=== PATIENT | female | born 1960 | race Caucasian/White ===

== ENCOUNTER 2016-09-14 14:48 | Emergency (ER) | payer MEDICARE ==
[2012-03-18 18:14] VITALS: BMI 48.7
[2016-09-14 15:58] LABS: BASOPHILS 0.9 % (0.0-2.0); EOSINOPHILS 4.3 % (0-7); HEMATOCRIT 43.3 % (36.0-48.0); HEMOGLOBIN 14.3 g/dL (12-16); IMMATURE GRANULOCYTES 0.1 % (0-5); MCH 31.2 pg (26.0-34.0); MCV 94.5 fL (80.0-100.0); MEAN PLATELET VOLUME 10.3 fL (7.4-10.4); MONOCYTES 8.7 % (2-11); PLATELET COUNT 198 10x3/uL (130-400); RBC 4.58 10x6/uL (4.00-5.40); RDW 12.9 % (11.5-14.5); WBC 6.9 10x3/uL (4.8-10.8)
[2016-09-14 16:07] LABS: APTT 25.4 SECONDS (22.8-39.4); INR 1.13 (0.85-1.17); PROTIME 14.4 SECONDS (11.6-15.0)
[2016-09-14 16:15] LABS: ALBUMIN 3.8 g/dL (3.4-5.0); ANION GAP 11.4 mmol/L (8-16); BILIRUBIN - TOTAL 0.42 mg/dL (0.2-1.3); CALCIUM 9.4 mg/dL (8.5-10.1); CARBON DIOXIDE 28.4 mmol/L (21.0-32.0); POTASSIUM - SERUM 3.8 mmol/L (3.5-5.1); PROTEIN - SERUM 7.2 g/dL (6.4-8.2)
== END 2016-09-14 18:03 | disposition left against medical advice (07) ==
LOC: D.ER 14:48
PROVIDERS: Emergency Medicine
DX: K92.1 Melena (principal)

== ENCOUNTER 2016-10-21 13:21 | Emergency (ER) | payer MEDICARE ==
[2012-03-18 18:14] VITALS: BMI 48.7
== END 2016-10-21 16:14 | disposition left against medical advice (07) ==
LOC: D.ER 13:21
DX: M54.5 Low back pain (principal)

== ENCOUNTER 2016-10-25 17:39 | Emergency (ER) | payer MEDICARE ==
[2012-03-18 18:14] VITALS: BMI 48.7
== END 2016-10-25 18:43 | disposition home or self-care (01) ==
LOC: D.ER 17:39
DX: S33.5XXA Sprain of ligaments of lumbar spine, initial encounter (principal); W19.XXXA Unspecified fall, initial encounter; Y93.89 Activity, other specified; Y92.017 Garden or yard in single-family (private) house as the place of occurrence of the external cause; S83.92XA Sprain of unspecified site of left knee, initial encounter; F17.200 Nicotine dependence, unspecified, uncomplicated; F32.9 Major depressive disorder, single episode, unspecified; K21.9 Gastro-esophageal reflux disease without esophagitis; B20 Human immunodeficiency virus [HIV] disease

== ENCOUNTER 2017-01-31 19:56 | Observation (INO) | payer MEDICARE ==
[~2017-01-31] VITALS: Ht 170.2 cm; Wt 134.3 kg
[2017-01-31 20:32] LABS: BASOPHILS 0.1 % (0-2); EOSINOPHILS 1.1 % (0-7); HEMATOCRIT 40.7 % (36.0-48.0); HEMOGLOBIN 13.8 g/dL (12-16); IMMATURE GRANULOCYTES 0.1 % (0-5); LYMPHOCYTES 22.9 % (15-50); MCH 31.5 pg (26.0-34.0); MCHC 33.9 g/dL (31.0-37.0); MCV 92.9 fL (80.0-100.0); MEAN PLATELET VOLUME 10.4 fL (7.4-10.4); MONOCYTES 4.9 % (2-11); NEUTROPHILS 70.9 % (40-80); PLATELET COUNT 185 10x3/uL (130-400); RBC 4.38 10x6/uL (4.00-5.40); RDW 12.8 % (11.5-14.5); WBC 9.3 10x3/uL (4.8-10.8)
[2017-01-31 20:45] LABS: ALBUMIN 3.2 g/dL (3.4-5.0); ALKALINE PHOSPHATASE 126 U/L (46-116); ALT (SGPT) 27 U/L (10-68); BILIRUBIN - TOTAL 0.17 mg/dL (0.2-1.3); CALC OSMOLALITY 288 mosm/kg (275-300); CALCIUM 8.7 mg/dL (8.5-10.1); CHLORIDE - SERUM 107 mmol/L (98-107); CREATININE - SERUM 1.3 mg/dL (0.6-1.3); POTASSIUM - SERUM 3.4 mmol/L (3.5-5.1); PROTEIN - SERUM 6.9 g/dL (6.4-8.2); SODIUM 142 mmol/L (136-145); UREA NITROGEN 17 mg/dL (7-18); eGFR NON AFRICAN AMERICAN 45 mL/min (90-120)
[2017-01-31 20:46] LABS: GLUCOSE 178 mg/dL (74-106)
[2017-01-31 20:54] LABS: CHOL - HDL RATIO 2.8 ratio (2.3-4.1); CHOLESTEROL, TOTAL 128 mg/dL (0-200); CKMB 0.4 U/L (0.0-3.6); CREATINE KINASE 77 UL (21-215); HDL CHOLESTEROL 45 mg/dL (32-96); LDL CHOLESTEROL 53 mg/dL (0-100); LDL-HDL RATIO 1.2 ratio (1.5-3.5); TRIGLYCERIDE 152 mg/dL (30-200)
[2017-01-31 20:55] LABS: TROPONIN-I < 0.017 ng/mL (0.000-0.060)
--- NOTE | 2017-01-31 22:20 | NUR ---
ADMIT TO ROOM 2122 FROM ER. ALERT/ORIENTED. ADMISSION HISTORY AND ASSESSMENT INITIATED. HOME MEDS REVIEWED. PT STATES SHE TAKES ALL HER MEDS ONLY ONCE PER DAY
[2017-02-01 01:37] LABS: CKMB 0.5 U/L (0.0-3.6); CREATINE KINASE 61 UL (21-215); TROPONIN-I < 0.017 ng/mL (0.000-0.060)
[2017-02-01 02:49] VITALS: BP 114/68; BMI 43.9
[2017-02-01 04:00] VITALS: BP 98/48
--- NOTE | 2017-02-01 04:29 | NUR ---
C/O CHEST PAIN. MEDICATED WITH MORPHINE 5MG SIVP AND ZOFRAN 4MG SIVP. PT SAYING SHE CANNOT GET COMFORTABLE NO MATTER WHAT POSITION SHE IS IN. CPOC.
[2017-02-01] MEDS ORDERED: CARAFATE1 G PO (05:10)
[2017-02-01] MEDS ORDERED: ATRIPLA TABLET1 TAB PO (05:11)
[2017-02-01] MEDS ORDERED: PROTONIX40 MG PO (05:12)
[2017-02-01] MEDS ORDERED: PRAVACHOL40 MG PO (05:12)
[2017-02-01] MEDS ORDERED: PROZAC10 MG PO (05:13)
[2017-02-01] MEDS ORDERED: GLUCOPHAGE500 MG PO (05:14)
[2017-02-01 05:36] LABS: CKMB 0.6 U/L (0.0-3.6); CREATINE KINASE 64 UL (21-215); TROPONIN-I < 0.017 ng/mL (0.000-0.060)
--- NOTE | 2017-02-01 06:06 | NUR ---
PT HAS BEEN MEDICATED TWICE FOR CHEST PAIN DURING THE NIGHT. SHE HAS BEEN UP TO THE BATHROOM ONCE WITH STAFF FOR STAND BY ASSISTANCE. PLAN OF CARE IN PLACE. PIV TO RIGHT A/C IS SALINE LOCKED. CALL LIGHT IN REACH.
--- NOTE | 2017-02-01 07:24 | NUR ---
ASSESSMENT COMPLETED. TELEMERTY SHOWS SR AT 73. 02 AT 2 L/M PER NC. RIGHT AC SL. NPO FOR NOW. DENIES ANY NEEDS. CALL LIGHT IN REACH WITH SR UP. WILL MONITOR
--- NOTE | 2017-02-01 07:32 | NUR ---
ASSESSMENT COMPLETED. UP IN BEDSIDE CHAIR. DENIES ANY NEEDS OR PAIN. CALL LIGHT IN REACH. WILL MONITOR
[2017-02-01 08:00] VITALS: BP 105/61
--- NOTE | 2017-02-01 10:25 | NUR ---
PT RETURNED VIA W/C IN STABLE CONDITION FROM HAVING PE CHEST DONE
[2017-02-01 12:00] VITALS: BP 96/60
[2017-02-01 12:18] LABS: CKMB 0.6 U/L (0.0-3.6); CREATINE KINASE 61 UL (21-215)
[2017-02-01 12:19] LABS: TROPONIN-I < 0.017 ng/mL (0.000-0.060)
[2017-02-01 16:00] VITALS: BP 104/53
[2017-02-01 20:00] VITALS: BP 99/62
--- NOTE | 2017-02-01 20:37 | NUR ---
MEDICATED WITH MORPHINE AND ZOFRAN IV FOR CHEST/GENERALIZED PAIN AND DISCOMFORT 04/23. CALL LIGHT IN REACH.
[2017-02-02] VITALS: BP 89/56
--- NOTE | 2017-02-02 00:44 | NUR ---
RESTING IN BED WITH NO DISTRESS. RESPS EVEN/NONLABORED. BP ON THE LOW SIDE SINCE SHE RECIEVED PAIN MED EARLIER. WILL MONITOR. CPOC.
--- NOTE | 2017-02-02 03:24 | NUR ---
PT AWAKE WITH C/O HEADACHE. MEDICATED WITH TYLENOL 650MG BY MOUTH. MONITOR AND CPOC.
[2017-02-02 04:00] VITALS: BP 97/52
--- NOTE | 2017-02-02 06:23 | NUR ---
PT RESTING IN BED. NO FURTHER C/O HEADACHE. NO CHANGE FROM INITIAL SHIFT ASSESSMENT. MONITOR AND CPOC. CALLL LIGHT IN REACH.
--- NOTE | 2017-02-02 07:37 | NUR ---
ASSESSMENT DONE. DENIES NEEDS.
--- NOTE | 2017-02-02 07:54 | NUR ---
RESTS IN BED WITH EYES CLOSED. CALL LIGHT IN REACH. WILL CONT. PLAN OF CARE.
[2017-02-02 08:29] VITALS: BP 97/56
[2017-02-02 12:05] VITALS: BP 97/53
--- NOTE | 2017-02-02 12:16 | HP ---
PATIENT: MILLIE TREVINO MEDICAL RECORD: [id number] ACCOUNT: [id number] LOCATION:[address] : 60 ADMISSION DATE: 01/31/17 HISTORY AND PHYSICAL EXAMINATION DATE OF SERVICE: 02/01/2017 ADMITTING DIAGNOSES: 1. Chest pain of unknown etiology. 2. Past history of pulmonary embolus. 3. Hyperlipidemia. 4. Human immunodeficiency virus. 5. Amf-[id number]-[id number] diabetes. 6. Gastroesophageal reflux disease. 7. Chronic nonsteroidal use. HISTORY OF PRESENT ILLNESS: This is a woman who presents with chest discomfort. She has a past history of pulmonary embolus; it has been a number of years. She is not on anticoagulation at this time for the pulmonary embolus. She had a sharp stabbing pain. She said even also number of years ago. She remembers that it is the same type of pain she had with the pulmonary embolus. She as well was having shortness of breath. She has no cardiac history. She has risk factors such as noninsulin-dependent diabetes, smoking history and hyperlipidemia. She does not know her family history as she has been adopted. She does have chronic back pain for which she uses chronic nonsteroidals. She has not had GI bleeding history. Her HIV is basically in remission. She has had a T-cell count greater than 900 for a number of years. She has not had any ____. PHYSICAL EXAMINATION: GENERAL APPEARANCE: Well-nourished, well-developed, appears stated age. Level of distress, comfortable. PSYCHIATRIC: Mental status, alert, normal affect. Orientation, oriented to time, place and person. EYES: Lids and conjunctiva, noninjected. No discharge, no pallor. ENT: Lips, teeth, gums, normal dentition. Oropharynx, no cyanosis, no pallor. NECK: Carotid arteries, bilateral normal upstroke, no bruits, no thrills. JUGULAR VEINS: No jugular venous pressure or distention. CERVICAL LYMPH NODES: Nontender, nonenlarged. THYROID: Not enlarged. Nontender. No nodules. LUNGS: Respiratory effort, unlabored. CHEST: Normal curvature. No thoracic deformity. No chest wall tenderness. Percussion, resonant. Auscultation, clear. No wheezes, no rales, no rhonchi. CARDIOVASCULAR: Precordial exam, nondisplaced. No heaves or pericardial thrills. Rate and rhythm, regular. Heart sounds, normal S1, normal S2. No S3, no gallop, no rub. Systolic murmur, not heard. Diastolic murmur, not heard. EXTREMITIES: No cyanosis, no edema. Peripheral pulses, full and equal in all extremities, except as noted. No bruits appreciated. ABDOMEN: Soft, nondistended. Normal aorta. No bruit. Nontender. No masses. Liver, nontender, no hepatomegaly. Spleen, nontender, no splenomegaly. MUSCULOSKELETAL: No joint tenderness. No joint swelling. No erythema. NEUROLOGICAL: Normal gait, normal strength, normal tone. SKIN: Warm and dry. REVIEW OF SYSTEMS: The patient reports easy bruising but reports no swollen HISTORY AND PHYSICAL [id number] MILLIE TREVINO. The patient reports no fever, no night sweats, no significant weight gain, no significant weight loss. No significant exercise tolerance. The patient reports no dry eyes, no irritation, no vision change. Patient reports no difficulty hearing and no ear pain. Patient reports no frequent nose bleeds or nose and sinus problems. Patient reports on arm pain on exertion. No shortness of breath while lying down. No history of heart murmur. Patient reports no cough, no wheezing or coughing up blood. Patient reports no abdominal pain, no vomiting. Normal appetite. No diarrhea and not vomiting blood. No nausea and no constipation. Patient reports no incontinence. No difficulty urinating. No hematuria. No increased frequency. Patient reports no muscle aches. No weakness, no arthralgias, no back pain. No swelling of the extremities. Patient reports no abnormal mole, no jaundice, no rashes. Reports no loss of consciousness. No weakness and no numbness. No seizures, dizziness, or headaches. The patient reports no depression, no sleep disturbance, feeling safe in a relationship and no alcohol abuse. Patient reports on fatigue. Reports no runny nose or sinus pressure. No itching, no hives, and no frequent sneezing. OVERALL IMPRESSION: Troponin is normal. A 12-lead ECG is normal. She is relatively sedentary secondary to her low back disease; hence, recurrent pulmonary embolus, but clinically makes sense. We will get a CT angio. Further care depends upon the findings of the CT angio. 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 [address] [id number]
[2017-02-02 12:25] VITALS: Ht 170.2 cm; Wt 134.3 kg
--- NOTE | 2017-02-02 13:15 | NUR ---
DC GIVEN TO PT
--- NOTE | 2017-02-02 13:26 | NUR ---
DC HOME PER PERSONAL CAR
--- NOTE | 2017-02-03 18:08 | DS ---
PATIENT:MILLIE TREVINO :60 MEDICAL RECORD: [id number] DISCHARGE SUMMARY ADMISSION DATE: 01/31/17 DISCHARGE DATE: 02/02/17 DISCHARGE DIAGNOSES: 1. Chest pain of unknown etiology, GERD, past history of pulmonary embolus. 2. Human immunodeficiency virus. HOSPITAL COURSE: Ms. Trevino presents with chest pain. Cardiac enzymes were normal. She had no EKG changes. She had a CT angio. She has a distant history of pulmonary embolus. This was negative. Her chest pain resolved. Discharged home with p.r.n. followup. TRANSINT:[id number] Voice Confirmation ID: [id number] DOCUMENT ID: [id number] HAL DALY MD at 1808 CC: [id number] DICTATION DATE: 02/02/17 1217 SALES RECRUITER: 02/03/17 0744 DIS IN 02/02/[id number] [place] [address]
== END 2017-02-02 13:27 | disposition home or self-care (01) ==
LOC: D.ER 19:56 → OBSVTIME 21:14 → D.M2 21:14
PROVIDERS: Emergency Medicine; ADMIT Internal Medicine Interventional Cardiology
DX: R07.9 Chest pain, unspecified (principal); Z86.711 Personal history of pulmonary embolism; E78.5 Hyperlipidemia, unspecified; E11.9 Type 2 diabetes mellitus without complications; K21.9 Gastro-esophageal reflux disease without esophagitis; B20 Human immunodeficiency virus [HIV] disease

== ENCOUNTER 2017-03-10 17:04 | Emergency (ER) | payer MEDICARE ==
[2017-02-02 12:25] VITALS: BMI 46.4
[~2017-03-10 17:04] MED LIST: ATRIPLA TABLET1 TAB PO; CARAFATE1 G PO; GLUCOPHAGE500 MG PO; PRAVACHOL40 MG PO; PROTONIX40 MG PO; PROZAC10 MG PO
[2017-03-10 18:13] LABS: BASOPHILS 0.4 % (0-2); EOSINOPHILS 3.3 % (0-7); HEMOGLOBIN 13.9 g/dL (12-16); IMMATURE GRANULOCYTES 0.1 % (0-5); MCH 31.6 pg (26.0-34.0); MCHC 33.1 g/dL (31.0-37.0); MCV 95.5 fL (80.0-100.0); MEAN PLATELET VOLUME 10.1 fL (7.4-10.4); MONOCYTES 6.8 % (2-11); NEUTROPHILS 61.4 % (40-80); PLATELET COUNT 203 10x3/uL (130-400); RDW 13.2 % (11.5-14.5); WBC 7.7 10x3/uL (4.8-10.8)
[2017-03-10 18:29] LABS: INR 1.02 (0.85-1.17); PROTIME 13.2 SECONDS (11.6-15.0)
[2017-03-10 18:38] LABS: ALBUMIN 3.3 g/dL (3.4-5.0); ALKALINE PHOSPHATASE 130 U/L (46-116); ALT (SGPT) 30 U/L (10-68); BILIRUBIN - TOTAL 0.25 mg/dL (0.2-1.3); CALC OSMOLALITY 281 mosm/kg (275-300); CALCIUM 8.8 mg/dL (8.5-10.1); CARBON DIOXIDE 25.3 mmol/L (21.0-32.0); CHLORIDE - SERUM 104 mmol/L (98-107); CREATININE - SERUM 1.2 mg/dL (0.6-1.3); GLUCOSE 137 mg/dL (74-106); POTASSIUM - SERUM 3.7 mmol/L (3.5-5.1); PROTEIN - SERUM 7.1 g/dL (6.4-8.2); SODIUM 140 mmol/L (136-145); UREA NITROGEN 16 mg/dL (7-18); eGFR NON AFRICAN AMERICAN 49 mL/min (90-120)
[2017-03-10 19:14] LABS: MAGNESIUM - SERUM 1.8 mg/dL (1.8-2.4); PRO BNP 281 pg/mL (0-125)
[2017-03-10 19:15] LABS: TROPONIN-I < 0.017 ng/mL (0.000-0.060)
== END 2017-03-10 20:15 | disposition home or self-care (01) ==
LOC: D.ER 17:04
PROVIDERS: Nurse Practitioner Family
DX: R00.2 Palpitations (principal); F41.9 Anxiety disorder, unspecified; K21.9 Gastro-esophageal reflux disease without esophagitis; B20 Human immunodeficiency virus [HIV] disease

== ENCOUNTER 2017-04-24 17:04 | Emergency (ER) | payer MEDICARE ==
[2017-02-02 12:25] VITALS: BMI 46.4
== END 2017-04-24 19:00 | disposition left against medical advice (07) ==
LOC: D.ER 17:04
DX: R19.7 Diarrhea, unspecified (principal); K21.9 Gastro-esophageal reflux disease without esophagitis; B20 Human immunodeficiency virus [HIV] disease

== ENCOUNTER 2017-05-21 17:02 | Emergency (ER) | payer MEDICARE ==
[2017-02-02 12:25] VITALS: BMI 46.4
== END 2017-05-21 18:34 | disposition home or self-care (01) ==
LOC: D.ER 17:02
DX: S90.32XA Contusion of left foot, initial encounter (principal); W20.8XXA Other cause of strike by thrown, projected or falling object, initial encounter; Y93.E9 Activity, other interior property and clothing maintenance; Y92.018 Other place in single-family (private) house as the place of occurrence of the external cause

== ENCOUNTER 2017-05-29 19:58 | Emergency (ER) | payer MEDICARE ==
[2017-02-02 12:25] VITALS: BMI 46.4
[2017-05-29 21:02] LABS: BASOPHILS 0.5 % (0-2); EOSINOPHILS 4.4 % (0-7); HEMATOCRIT 41.1 % (36.0-48.0); HEMOGLOBIN 13.5 g/dL (12-16); IMMATURE GRANULOCYTES 0.2 % (0-5); LYMPHOCYTES 38.4 % (15-50); MCH 31.4 pg (26.0-34.0); MCHC 32.8 g/dL (31.0-37.0); MCV 95.6 fL (80.0-100.0); MEAN PLATELET VOLUME 10.3 fL (7.4-10.4); MONOCYTES 6.5 % (2-11); PLATELET COUNT 200 10x3/uL (130-400); RDW 13.2 % (11.5-14.5); WBC 6.4 10x3/uL (4.8-10.8)
[2017-05-29 21:13] LABS: ALKALINE PHOSPHATASE 136 U/L (46-116); ALT (SGPT) 25 U/L (10-68); BILIRUBIN - TOTAL 0.21 mg/dL (0.2-1.3); CALC OSMOLALITY 289 mosm/kg (275-300); CALCIUM 8.6 mg/dL (8.5-10.1); CARBON DIOXIDE 27.7 mmol/L (21.0-32.0); CHLORIDE - SERUM 110 mmol/L (98-107); CREATININE - SERUM 1.2 mg/dL (0.6-1.3); GLUCOSE 159 mg/dL (74-106); POTASSIUM - SERUM 3.6 mmol/L (3.5-5.1); PROTEIN - SERUM 6.7 g/dL (6.4-8.2); SODIUM 144 mmol/L (136-145); UREA NITROGEN 12 mg/dL (7-18); eGFR NON AFRICAN AMERICAN 49 mL/min (90-120)
[2017-05-29 21:14] LABS: ALBUMIN 3.2 g/dL (3.4-5.0)
[2017-05-29 21:17] LABS: CREATINE KINASE 84 UL (21-215)
[2017-05-29 21:19] LABS: TROPONIN-I < 0.017 ng/mL (0.000-0.060)
[2017-05-29 21:53] LABS: APPEARANCE CLEAR (CLEAR); BILIRUBIN NEGATIVE (NEGATIVE); COLOR YELLOW (YELLOW); GLUCOSE NEGATIVE (NEGATIVE); KETONE NEGATIVE (NEGATIVE); LEUKOCYTE ESTERASE NEGATIVE (NEGATIVE); NITRITE NEGATIVE (NEGATIVE); PROTEIN NEGATIVE (NEGATIVE); UROBILINOGEN NORMAL (NORMAL)
== END 2017-05-29 23:30 | disposition home or self-care (01) ==
LOC: D.ER 19:58
PROVIDERS: Emergency Medicine; Nurse Practitioner Family
DX: J44.1 Chronic obstructive pulmonary disease with (acute) exacerbation (principal); B20 Human immunodeficiency virus [HIV] disease; K21.9 Gastro-esophageal reflux disease without esophagitis

== ENCOUNTER 2017-10-29 20:18 | Emergency (ER) | payer MEDICARE | END 2017-10-30 00:45 | disposition home or self-care (01) | LOC: D.ER 20:18 | DX: S40.012A Contusion of left shoulder, initial encounter (principal); W01.0XXA Fall on same level from slipping, tripping and stumbling without subsequent striking against object, initial encounter; Y93.89 Activity, other specified; Y92.89 Other specified places as the place of occurrence of the external cause; S20.219A Contusion of unspecified front wall of thorax, initial encounter ==

== ENCOUNTER 2018-01-29 15:21 | Emergency (ER) | payer MEDICARE ==
[2017-02-02 12:25] VITALS: BMI 46.4
[2018-01-29 15:49] LABS: BASOPHILS 0.4 % (0-2); EOSINOPHILS 2.6 % (0-7); HEMATOCRIT 42.7 % (36.0-48.0); HEMOGLOBIN 14.6 g/dL (12-16); IMMATURE GRANULOCYTES 0.1 % (0-5); LYMPHOCYTES 31.5 % (15-50); MCH 31.7 pg (26.0-34.0); MCHC 34.2 g/dL (31.0-37.0); MCV 92.8 fL (80.0-100.0); MEAN PLATELET VOLUME 10.2 fL (7.4-10.4); MONOCYTES 8.3 % (2-11); NEUTROPHILS 57.1 % (40-80); PLATELET COUNT 220 10x3/uL (130-400); RDW 13.1 % (11.5-14.5)
[2018-01-29 16:02] LABS: INR 1.04 (0.85-1.17); PROTIME 13.2 SECONDS (11.6-15.0)
[2018-01-29 16:04] LABS: D-DIMER-QUANTITATIVE 0.5 ug/mLFEU (0.20-0.54)
[2018-01-29 16:07] LABS: ALBUMIN 3.4 g/dL (3.4-5.0); ALKALINE PHOSPHATASE 147 U/L (46-116); ALT (SGPT) 22 U/L (10-68); BILIRUBIN - TOTAL 0.25 mg/dL (0.2-1.3); CALC OSMOLALITY 283 mosm/kg (275-300); CALCIUM 9.1 mg/dL (8.5-10.1); CARBON DIOXIDE 28.2 mmol/L (21.0-32.0); CHLORIDE - SERUM 104 mmol/L (98-107); CREATININE - SERUM 1.1 mg/dL (0.6-1.3); GLUCOSE 126 mg/dL (74-106); POTASSIUM - SERUM 4.1 mmol/L (3.5-5.1); PROTEIN - SERUM 7.6 g/dL (6.4-8.2); SODIUM 142 mmol/L (136-145); UREA NITROGEN 11 mg/dL (7-18); eGFR NON AFRICAN AMERICAN 54 mL/min (90-120)
[2018-01-29 16:13] LABS: CHOLESTEROL, TOTAL 152 mg/dL (0-200); CKMB 0.3 U/L (0.0-3.6); CREATINE KINASE 90 UL (21-215); HDL CHOLESTEROL 51 mg/dL (32-96); LDL CHOLESTEROL 74 mg/dL (0-100); LDL-HDL RATIO 1.5 ratio (1.5-3.5); LIPASE 171 U/L (73-393); PRO BNP 129 pg/mL (0-125); TRIGLYCERIDE 138 mg/dL (30-200)
[2018-01-29 16:14] LABS: TROPONIN-I < 0.017 ng/mL (0.000-0.060)
[2018-01-29 17:13] LABS: APPEARANCE CLEAR (CLEAR); BILIRUBIN NEGATIVE (NEGATIVE); COLOR YELLOW (YELLOW); GLUCOSE NEGATIVE (NEGATIVE); KETONE NEGATIVE (NEGATIVE); NITRITE NEGATIVE (NEGATIVE); PROTEIN NEGATIVE (NEGATIVE); UROBILINOGEN NORMAL (NORMAL)
[2018-01-29 20:06] LABS: CREATINE KINASE 74 UL (21-215); TROPONIN-I < 0.017 ng/mL (0.000-0.060)
== END 2018-01-29 22:53 | disposition home or self-care (01) ==
LOC: D.ER 15:21
PROVIDERS: Emergency Medicine; Nurse Practitioner Family
DX: R07.9 Chest pain, unspecified (principal); K21.9 Gastro-esophageal reflux disease without esophagitis; F41.9 Anxiety disorder, unspecified

== ENCOUNTER 2020-05-06 19:36 | Emergency (ER) | payer MEDICARE ==
[~2020-05-06] VITALS: Ht 170.2 cm; Wt 118.2 kg
[2020-05-06 20:03] VITALS: Ht 170.2 cm; Wt 118.2 kg
[2020-05-06 21:33] LABS: BILIRUBIN NEGATIVE (NEGATIVE); GLUCOSE NEGATIVE (NEGATIVE); KETONE NEGATIVE (NEGATIVE); NITRITE NEGATIVE (NEGATIVE); UROBILINOGEN NORMAL (NORMAL)
[2020-05-06 21:56] LABS: BASOPHILS 0.3 % (0-2); EOSINOPHILS 2.3 % (0-7); HEMATOCRIT 41.9 % (36.0-48.0); HEMOGLOBIN 13.8 g/dL (12-16); IMMATURE GRANULOCYTES 0.2 % (0-5); LYMPHOCYTES 34.1 % (15-50); MCH 31.7 pg (26.0-34.0); MCHC 32.9 g/dL (31.0-37.0); MCV 96.3 fL (80.0-100.0); MEAN PLATELET VOLUME 9.8 fL (7.4-10.4); MONOCYTES 7.8 % (2-11); NEUTROPHILS 55.3 % (40-80); PLATELET COUNT 223 10x3/uL (130-400); RBC 4.35 10x6/uL (4.00-5.40); RDW 13.6 % (11.5-14.5); WBC 9.4 10x3/uL (4.8-10.8)
[2020-05-06 22:08] LABS: ANION GAP 10.9 mmol/L (8-16); CALCIUM 8.8 mg/dL (8.5-10.1); CARBON DIOXIDE 27.1 mmol/L (21.0-32.0); CREATININE - SERUM 1.7 mg/dL (0.6-1.3)
[2020-05-06 22:11] LABS: ALBUMIN 3.2 g/dL (3.4-5.0); BILIRUBIN - TOTAL 0.18 mg/dL (0.2-1.3)
[2020-05-06] MEDS ORDERED: ULTRAM50 MG PO (23:50)
[2020-05-06] MEDS ORDERED: CYCLOBENZAPRINE10 MG PO (23:50)
[2020-05-07 00:17] VITALS: BP 110/79
== END 2020-05-07 00:17 | disposition home or self-care (01) ==
LOC: D.ER 19:36
PROVIDERS: Family Medicine
DX: S39.012A Strain of muscle, fascia and tendon of lower back, initial encounter (principal); X58.XXXA Exposure to other specified factors, initial encounter; E11.9 Type 2 diabetes mellitus without complications; Z79.84 Long term (current) use of oral hypoglycemic drugs; F17.210 Nicotine dependence, cigarettes, uncomplicated